=== PATIENT | female | born 2000 | race Caucasian/White ===

== ENCOUNTER 2023-06-13 15:23 | Observation (INO) | payer BC ==
[2023-06-13 18:24] LABS: FOLIC ACID 29.2 ng/mL (8.6-58.9)
[2023-06-13 18:51] LABS: BASOPHILS ABSOLUTE AUTO 0.1 K/mm3 (0.0-0.2); BASOPHILS PERCENT AUTO 0.8 % (0.0-1.0); EOSINOPHILS ABSOLUTE AUTO 0.2 K/mm3 (0.0-0.4); EOSINOPHILS PERCENT AUTO 2.5 % (0.0-6.0); HEMATOCRIT 40.6 % (37.0-47.0); HEMOGLOBIN 13.5 gm/dl (12.0-16.0); IMMATURE GRAN ABSOLUTE AUTO 0.02 K/mm3 (0.00-0.05); IMMATURE GRAN PERCENT AUTO 0.3 % (0.0-0.4); LYMPHOCYTES ABSOLUTE AUTO 2.7 K/mm3 (1.0-4.8); LYMPHOCYTES PERCENT AUTO 36.6 % (24.0-44.0); MEAN CORPUSCULAR HEMOGLOBIN 29.9 pg (28.0-32.0); MEAN CORPUSCULAR HGB CONC 33.3 g/dl (32.0-36.0); MEAN CORPUSCULAR VOLUME 89.8 fl (83.0-99.0); MEAN PLATELET VOLUME 11.5 fl (9.4-12.3); MONOCYTES ABSOLUTE AUTO 0.5 K/mm3 (0.0-0.8); MONOCYTES PERCENT AUTO 6.9 % (0.0-8.0); NEUTROPHILS ABSOLUTE AUTO 3.8 K/mm3 (1.8-7.7); NEUTROPHILS PERCENT AUTO 52.9 % (41.0-71.0); PLATELET COUNT,PLT 67 K/mm3 (150-400); RED BLOOD CELL COUNT 4.52 M/mm3 (4.10-5.30); WHITE BLOOD CELL COUNT,WBC 7.26 K/mm3 (3.9-11.3)
[2023-06-13] MEDS ORDERED: Ondansetron 4 MG/2 ML SDV IV PRN (19:54)
[2023-06-13] MEDS ORDERED: Acetaminophen 325 MG Tab PO PRN (19:54)
[2023-06-13] MEDS ORDERED: Ondansetron 4 MG Tab.DIS PO PRN (21:42)
[2023-06-13 21:43] LABS: RETICULOCYTE COUNT PERCENT 1.72 % (0.50-2.00)
[2023-06-14 04:50] LABS: BASOPHILS ABSOLUTE AUTO 0.1 K/mm3 (0.0-0.2); BASOPHILS PERCENT AUTO 0.8 % (0.0-1.0); EOSINOPHILS ABSOLUTE AUTO 0.3 K/mm3 (0.0-0.4); EOSINOPHILS PERCENT AUTO 3.3 % (0.0-6.0); HEMATOCRIT 39.8 % (37.0-47.0); HEMOGLOBIN 13.3 gm/dl (12.0-16.0); IMMATURE GRAN ABSOLUTE AUTO 0.03 K/mm3 (0.00-0.05); IMMATURE GRAN PERCENT AUTO 0.3 % (0.0-0.4); LYMPHOCYTES ABSOLUTE AUTO 3.1 K/mm3 (1.0-4.8); LYMPHOCYTES PERCENT AUTO 35.2 % (24.0-44.0); MEAN CORPUSCULAR HEMOGLOBIN 29.6 pg (28.0-32.0); MEAN CORPUSCULAR HGB CONC 33.4 g/dl (32.0-36.0); MEAN CORPUSCULAR VOLUME 88.4 fl (83.0-99.0); MEAN PLATELET VOLUME 8.8 fl (9.4-12.3); MONOCYTES ABSOLUTE AUTO 0.7 K/mm3 (0.0-0.8); MONOCYTES PERCENT AUTO 8.2 % (0.0-8.0); NEUTROPHILS ABSOLUTE AUTO 4.6 K/mm3 (1.8-7.7); NEUTROPHILS PERCENT AUTO 52.2 % (41.0-71.0); PLATELET COUNT,PLT 329 K/mm3 (150-400); WHITE BLOOD CELL COUNT,WBC 8.76 K/mm3 (3.9-11.3)
[2023-06-14 13:46] LABS: NEUTROPHILS% 51 % (41-71)
== END 2023-06-14 11:10 | disposition home or self-care (01) ==
LOC: JD.ED 15:23 → JD.MS 19:54
PROVIDERS: ADMIT Hospitalist; ATTEND Hospitalist
DX: D69.6 Thrombocytopenia, unspecified (principal); R20.0 Anesthesia of skin; R79.82 Elevated C-reactive protein (CRP); Z79.899 Other long term (current) drug therapy; Z88.0 Allergy status to penicillin
CPT/HCPCS: 36415; 70450; 82607; 82746; 85025; 85045; 85379; 86140; 93971; 99285; G0378; 99283